=== PATIENT | male | born 1960 | race Caucasian/White ===

== ENCOUNTER 2021-11-25 15:00 | Outpatient (RCR) | payer BC | END 2021-12-20 | disposition still patient (30) | LOC: OT | DX: M25.521 Pain in right elbow (principal) ==

== ENCOUNTER 2021-12-23 15:29 | Outpatient (RCR) | payer BC | END 2022-01-20 | disposition home or self-care (01) | LOC: OT | DX: M25.521 Pain in right elbow (principal) ==